=== PATIENT | male | born 1965 | race Two or more races ===

== ENCOUNTER 2022-10-01 05:28 | Day surgery (SDC) | payer OTHER | END 2022-10-01 10:15 | disposition home or self-care (01) | LOC: CIR.AMB 05:28 | PROVIDERS: ATTEND Surgery | DX: K43.6 Other and unspecified ventral hernia with obstruction, without gangrene (principal); Z20.822 Contact with and (suspected) exposure to COVID-19 | CPT/HCPCS: 49561; 49568; C1781 ==